=== PATIENT | male | born 1965 | race Caucasian/White ===

== ENCOUNTER 2019-11-25 21:52 | Emergency (ER) | payer BC, OTHER ==
--- NOTE | 2019-11-25 23:22 | XR ---
EXAMINATION TYPE: XR forearm LT DATE OF EXAM: 11/25/2019 COMPARISON: NONE HISTORY: Fall. Pain. TECHNIQUE: 2 views FINDINGS: There is transverse fracture distal radial metaphysis. There is nondisplaced ulnar styloid process fracture. Wrist joint appears anatomic. Detail is limited. The elbow joint appears intact. IMPRESSION: Acute fractures of the distal radius and ulna without significant displacement. No disloc ation.
--- NOTE | 2019-11-25 23:25 | XR ---
EXAMINATION TYPE: XR wrist complete LT DATE OF EXAM: 11/25/2019 COMPARISON: NONE HISTORY: Pain. Fall. TECHNIQUE: 4 views FINDINGS: Carpal bones are intact. There is nondisplaced fracture ulnar styloid process. There is acu te transverse fracture distal radial metaphysis. No significant displacement. There is no dislocation . Intercarpal joint spaces are normal. IMPRESSION: Acute transverse fracture distal radius with no displacement. Nondisplaced ulnar styloid process fracture.
[2019-11-26] MEDS ORDERED: DIPH,PERTUS(ACELL)TETVAC-LF 0.5 ML VIAL IM ONE (00:18)
[2019-11-26 00:31] VITALS: BP 152/84; PULSE 78; RESP 18; TEMP 98.2
--- NOTE | 2019-11-26 00:50 | CT ---
EXAMINATION TYPE: CT brain cspine wo con DATE OF EXAM: 11/26/2019 COMPARISON: None HISTORY: fall Headache. Neck pain. CT DLP: 1379.80 mGycm Automated exposure control for dose reduction was used. Ventricles and sulci appear normal. There is no mass effect nor midline shift. There is no sign of in tracranial hemorrhage. The calvarium is intact. Temporal bones appear intact. Skull base is intact. Cervical vertebra have fairly normal spacing and alignment. Posterior elements are intact. Facet join ts appear normal. Prevertebral soft tissues are intact. IMPRESSION: Negative CT scan of the brain. Negative CT scan cervical spine.
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
== END 2019-11-26 01:43 | disposition home or self-care (01) ==
LOC: EC 21:52
DX: S52.615A Nondisplaced fracture of left ulna styloid process, initial encounter for closed fracture (principal); S52.592A Other fractures of lower end of left radius, initial encounter for closed fracture; S00.81XA Abrasion of other part of head, initial encounter; I10 Essential (primary) hypertension; E11.9 Type 2 diabetes mellitus without complications; Z79.899 Other long term (current) drug therapy; Z79.84 Long term (current) use of oral hypoglycemic drugs; V00.141A Fall from scooter (nonmotorized), initial encounter; Y93.55 Activity, bike riding; Z23 Encounter for immunization
CPT/HCPCS: 29125; 70450; 72125; 90471; 90715; 99284